=== PATIENT | female | born 1990 ===

== ENCOUNTER 2022-02-20 19:00 | Inpatient (IN) | payer MEDICAID, OTHER ==
[2022-02-21] MEDS ORDERED: hydrALAZINE 20 MG/ML VIAL SLOW IVP PRN (22:12)
[2022-02-21] MEDS ORDERED: Ondansetron PF 4 MG/2 ML Vial IVP PRN (22:12)
[2022-02-21] MEDS ORDERED: Misoprostol 200 MCG TAB PR PRN (22:12)
[2022-02-21] MEDS ORDERED: Methylergonovine 0.2 MG/ML VIAL IM PRN (22:12)
[2022-02-21] MEDS ORDERED: Lidocaine 1% (PF) 30 ML VIAL SC PRN (22:12)
[2022-02-21] MEDS ORDERED: Acetaminophen 500 MG TAB PO PRN (22:12)
[2022-02-21] MEDS ORDERED: Carboprost 250 MCG/ML AMP IM PRN (22:12)
[2022-02-21] MEDS ORDERED: Ibuprofen 800 MG TAB PO PRN (22:12)
[2022-02-21] MEDS ORDERED: Promethazine HCl 25 MG/ML VIAL IM PRN (22:12)
[2022-02-21] MEDS ORDERED: NS w/ Oxytocin 30 units 500 ML IV SCH ×2 (22:15)
[2022-02-21] MEDS ORDERED: Misoprostol 100 MCG TAB ONE (23:12)
[2022-02-21 23:19] VITALS: BMI 25.3
[2022-02-21] MEDS: Misoprostol 100 MCG TAB VAG SCH (23:26)
[2022-02-21 23:33] LABS: Mean Corpuscular HGB CONC 35.6 g/dL (32.0-36.0); Mean Corpuscular Hemoglobin 32.1 pg (27.0-33.0); Mean Corpuscular Volume 90.1 fl (81.6-98.3); Platelet Count 231 10x3/uL (150-450); RBC Distribution Width 14.2 % (11.5-14.5); Red Blood Cell (RBC) Count 3.74 10x6/uL (3.90-5.03); White Blood Cell (WBC) Count 7.3 10x3/uL (3.5-10.5)
[2022-02-22 00:04] LABS: Hep B Surf Ag Non-Reactive S/CO (NonReactive); Syphilis Antibody Nonreactive (Nonreactive); Syphilis Antibody Index 0.09 S/CO (<1.00 Non-Reactive)
[2022-02-22 00:10] LABS: HBSAg Index 0.18 S/CO (0-0.99)
[2022-02-22] MEDS ORDERED: Butorphanol Tartrate 1 MG/ML VIAL SLOW IVP PRN (04:12)
[2022-02-22] MEDS ORDERED: Fentanyl 2 mcg/Bup 0.1% Cadd 100 ML ONE (05:24)
[2022-02-22] MEDS ORDERED: Ondansetron PF 4 MG/2 ML Vial IVP PRN (06:27)
[2022-02-22] MEDS ORDERED: diphenhydrAMINE 50 MG/ML VIAL IVP PRN (06:27)
[2022-02-22] MEDS ORDERED: Lactated Ringer's 500 ML IV PRN (06:27)
[2022-02-22] MEDS ORDERED: ePHEDrine Sulfate 50 MG/10 ML VIAL SLOW IVP PRN (06:27)
[2022-02-22] MEDS ORDERED: Naloxone HCl 0.4 mg/ml Vial IVP PRN ×2 (06:27)
[2022-02-22] MEDS ORDERED: Moisturizing Cream (Eucerin) 113 GM JAR TOP PRN (06:27)
[2022-02-22] MEDS ORDERED: Acetaminophen 325 MG TAB PO PRN (06:27)
[2022-02-22] MEDS ORDERED: Promethazine HCl 25 MG/ML VIAL IM PRN (06:27)
[2022-02-22] MEDS ORDERED: Fentanyl 2 mcg/Bupivacaine 0.1% Cassette 100 ML EPIDURAL SCH (06:30)
[2022-02-22] MEDS ORDERED: Communication Order-Pharmacy FS SCH (06:30)
[2022-02-22] MEDS: Lactated Ringer's 1,000 ML IV SCH ×2 (09:00→16:18)
[2022-02-22] MEDS ORDERED: Milk Of Magnesia 30 ML UDCUP PO PRN (13:59)
[2022-02-22] MEDS ORDERED: Preparation H Ointment 28 GM TUBE PR PRN (13:59)
[2022-02-22] MEDS ORDERED: diphenhydrAMINE 25 MG CAP PO PRN (13:59)
[2022-02-22] MEDS ORDERED: hydrALAZINE 20 MG/ML VIAL SLOW IVP PRN (13:59)
[2022-02-22] MEDS ORDERED: Measles/Mumps/Rubella 10 MCG/0.5 ML VIAL SC ONE (13:59)
[2022-02-22] MEDS ORDERED: Boostrix 0.5 ML (Tdap) VIAL IM ONE (13:59)
[2022-02-22] MEDS ORDERED: Benzocaine-Menthol 82.5 ML CAN TOP PRN (13:59)
[2022-02-22] MEDS ORDERED: Lanolin Ointment 7 GM TUBE TOP PRN (13:59)
[2022-02-22] MEDS ORDERED: Bisacodyl 10 MG SUPP PR PRN (13:59)
[2022-02-22] MEDS: Misoprostol 100 MCG TAB VAG SCH (16:19)
[2022-02-22] MEDS: Ibuprofen 800 MG TAB PO SCH ×2 (16:22→21:39)
[2022-02-22] MEDS: Ferrous Sulfate 325 MG TAB PO SCH (18:22)
[2022-02-22] MEDS: Docusate 100 MG CAP PO SCH (21:39)
[2022-02-23 05:35] LABS: Hemoglobin 10.9 g/dL (12.0-15.5); Mean Corpuscular HGB CONC 34.9 g/dL (32.0-36.0); Mean Corpuscular Hemoglobin 31.7 pg (27.0-33.0); Mean Corpuscular Volume 90.7 fl (81.6-98.3); Mean Platelet Volume 10.2 fl (7.4-10.4); Platelet Count 216 10x3/uL (150-450); RBC Distribution Width 14.3 % (11.5-14.5); Red Blood Cell (RBC) Count 3.44 10x6/uL (3.90-5.03); White Blood Cell (WBC) Count 8.6 10x3/uL (3.5-10.5)
[2022-02-23 05:59] VITALS: TEMP 97.7
[2022-02-23] MEDS: Ibuprofen 800 MG TAB PO SCH (06:06)
[2022-02-23] MEDS: Ferrous Sulfate 325 MG TAB PO SCH (08:35)
[2022-02-23 08:43] VITALS: BP 98/51
[2022-02-23] MEDS: Docusate 100 MG CAP PO SCH (08:53)
[2022-02-23] MEDS ORDERED: Prenatal Vitamin 1 TAB PO SCH (09:00)
[2022-02-23] MEDS ORDERED: Varicella virus, LIVE 0.5 ML VIAL SC ONE (13:59)
== END 2022-02-23 14:43 | disposition home or self-care (01) | DRG 806 ==
LOC: CSHLD 02-21 21:52 → CSHPP 02-22 13:57
PROVIDERS: ADMIT Student in an Organized Health Care Education/Training Program; ATTEND Student in an Organized Health Care Education/Training Program
PROC: 10E0XZZ Delivery of Products of Conception, External Approach (ICD-10-PCS; principal; 2022-02-22)
PROC: 0HQ9XZZ Repair Perineum Skin, External Approach (ICD-10-PCS; 2022-02-22)
DX: O24.410 Gestational diabetes mellitus in pregnancy, diet controlled (principal); O72.1 Other immediate postpartum hemorrhage; Z37.0 Single live birth; O42.02 Full-term premature rupture of membranes, onset of labor within 24 hours of rupture; O70.0 First degree perineal laceration during delivery; Z3A.39 39 weeks gestation of pregnancy; Z20.822 Contact with and (suspected) exposure to COVID-19; O69.81X0 Labor and delivery complicated by cord around neck, without compression, not applicable or unspecified
CPT/HCPCS: 51702; 85027; 86780; 86850; 86900; 86901; 87340; J0595; J2590; J7120